=== PATIENT | female | born 1955 | race American Indian/Alaskan Native ===

== ENCOUNTER 2016-08-09 04:19 | Emergency (ER) | payer BC ==
[2016-08-09 04:46] LABS: Basophils % (Auto) 0.3 % (0.0-1.8); Eosinophils % (Auto) 1.5 % (0.0-4.3); Hematocrit 40.5 % (30.3-42.9); Hemoglobin 13.4 gm/dl (10.1-14.3); Mean Corpuscular HGB Conc 33 % (30-34); Mean Corpuscular Hemoglobin 31 pg (28-32); Mean Corpuscular Volume 95 fl (79-97); Platelet Count 223 K/mm3 (140-440); Red Blood Count 4.28 M/mm3 (3.65-5.03); White Blood Count 11.9 K/mm3 (4.5-11.0)
[2016-08-09 05:08] LABS: Alanine Aminotransferase 19 units/L (7-56); Albumin 4.3 g/dL (3.9-5); Albumin/Globulin Ratio 1.4 %; Alkaline Phosphatase 96 units/L (35-129); Anion Gap 21 mmol/L; BUN/Creatinine Ratio 26.66; Blood Urea Nitrogen 16 mg/dL (7-17); Calcium 9.6 mg/dL (8.4-10.2); Carbon Dioxide 21 mmol/L (22-30); Chloride 104.2 mmol/L (98-107); Glucose 97 mg/dL (65-100); Lipase 32 units/L (13-60); Potassium 3.9 mmol/L (3.6-5.0); Sodium 142 mmol/L (137-145); Total Protein 7.4 g/dL (6.3-8.2)
[2016-08-09 07:48] LABS: Bilirubin,Urine NEG (Negative); Blood,Urine NEG (Negative); Ketones,Urine NEG (Negative); Leukocyte Esterase,Urine NEG (Negative); Nitrite,Urine NEG (Negative); Protein,Urine <15 mg/dL mg/dL (Negative); Urobilinogen,Urine < 2.0 mg/dL (<2.0); WBC,Urine < 1.0 /HPF (0.0-6.0)
[2016-08-09] MEDS ORDERED: NACL ONE (10:38)
--- NOTE | 2016-08-09 10:44 | Emergency Department Report ---
HPI - General Chief Complaint: Abdominal Pain Time Seen by Provider: 08/09/16 09:50 - HPI HPI: This is a 61-year-old Afro-[place] female who presents the emergency department , driving himself in to be seen, with complaint of right lower quadrant abdominal/pelvic pain has been going on intermittently for the past 4 months. She last had it about 10 minutes prior to presentation. When it happens it is a dull ache and moderate amount of pain but she does not currently have any discomfort while talking to me. She denies any fever, nausea, vomiting, back pain, dysuria, vaginal bleeding or discharge. She is not taken anything for symptoms prior to presentation. Her primary care doctor is Dr. 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 No recent travel or sick contacts at home. She denies any past medical history. ED Past Medical Hx - Past Medical History Previous Medical History?: No - Surgical History Past Surgical History?: No - Social History Smoking Status: Former Smoker Substance Use Type: Alcohol ED Review of Systems ROS: Stated complaint: R SIDE ABD PAIN Other details as noted in HPI Comment: All other systems reviewed and negative Constitutional: denies: chills, fever Eyes: denies: eye pain, eye discharge, vision change ENT: denies: ear pain, throat pain Respiratory: denies: cough, shortness of breath, wheezing Cardiovascular: denies: chest pain, palpitations Gastrointestinal: abdominal pain. denies: nausea, vomiting Genitourinary: denies: urgency, dysuria, discharge Musculoskeletal: denies: back pain, joint swelling, arthralgia Skin: denies: rash, lesions Neurological: denies: headache, weakness, paresthesias Physical Exam - Physical Exam Vital Signs: Vital Signs 08/09/16 08/09/16 08/09/16 04:26 09:00 09:56 Temperature 98.3 F 97.6 F Pulse Rate 73 64 74 Respiratory 18 16 16 Rate Blood Pressure 136/88 126/80 Blood Pressure 124/78 [Left] O2 Sat by Pulse 100 98 100 Oximetry 08/09/16 10:04 Temperature Pulse Rate 77 Respiratory 16 Rate Blood Pressure Blood Pressure 124/71 [Left] O2 Sat by Pulse 100 Oximetry Physical Exam: GENERAL: The patient is well-developed well-nourished. HEENT: Normocephalic. Atraumatic. Extraocular motions are intact. Patient has moist mucous membranes. Pupils equal reactive to light bilaterally. NECK: Supple. Trachea is midline. CHEST/LUNGS: Clear to auscultation. There is no respiratory distress noted. HEART/CARDIOVASCULAR: Regular. There is no tachycardia. There is no gallop rub or murmur. ABDOMEN: Abdomen is soft, nontender. Patient has normal bowel sounds. There is no abdominal distention. No guarding or rebound tenderness. SKIN: Skin is warm and dry. NEURO: The patient is awake, alert, and oriented. The patient is cooperative. The patient has no focal neurologic deficits. The patient has normal speech. MUSCULOSKELETAL: There is no tenderness or deformity. There is no limitation range of motion. There is no evidence of acute injury. ED Course Vital Signs 08/09/16 08/09/16 08/09/16 04:26 09:00 09:56 Temperature 98.3 F 97.6 F Pulse Rate 73 64 74 Respiratory 18 16 16 Rate Blood Pressure 136/88 126/80 Blood Pressure 124/78 [Left] O2 Sat by Pulse 100 98 100 Oximetry 08/09/16 10:04 Temperature Pulse Rate 77 Respiratory 16 Rate Blood Pressure Blood Pressure 124/71 [Left] O2 Sat by Pulse 100 Oximetry ED Medical Decision Making - Lab Data Result diagrams: 08/09/16 04:35 08/09/16 04:35 - Radiology Data Radiology results: report reviewed CT of the abdomen and pelvis with IV contrast shows no acute CT abnormalities with various internal findings including hepatic hemangiomas, midline anterior abdominal wall multiple hernias and uterine fibroids. - Medical Decision Making 61-year-old female presents to the emergency department with intermittent right lower quadrant abdominal pain over the past 4 months. She had some just prior to presentation but during the ED course this far she has not had any return of this discomfort. Vital signs stable throughout ED course. Patient's labs are unremarkable including no leukocytosis, electrolyte abnormalities, renal insufficiency, glucose abnormalities. She has normal belly labs including bilirubin, lipase and LFT. Urinalysis does not show any urinary tract infection. A CT of the abdomen and pelvis with IV contrast was done that does not show any acute process. There are incidental findings of fibroids, hepatic hemangiomas and fat filled hernia as. Patient was given the results of the CT report and the lab results. She appears safe for discharge home at this time. She has a primary care doctor for follow-up. She has been encouraged to return to the emergency department with any worsening of her symptoms or any acute distress. - Differential Diagnosis appendicitis, fibroids, colitis, UTI Critical Care Time: No Critical care attestation.: If time is entered above; I have spent that time in minutes in the direct care of this critically ill patient, excluding procedure time. ED Disposition Clinical Impression: Hemangioma of liver Abdominal pain Qualifiers: Abdominal location: right lower quadrant Qualified Code(s): R10.31 - Right lower quadrant pain Fibroid Qualifiers: Uterine leiomyoma location: unspecified location Qualified Code(s): D25.9 - Leiomyoma of uterus, unspecified Disposition: DISCHARGED TO HOME OR SELFCARE Is pt being admited?: No Condition: Stable Instructions: Uterine Fibroids (ED), Abdominal Pain (ED) Additional Instructions: Please follow-up with Dr. Spencer in the next few days without fail. Return to the emergency department with any worsening of your symptoms or any acute distress. Referrals: PERI LUCAS JR, MD [Primary Care Provider] - 3-5 Days Time of Disposition: 11:55
--- NOTE | 2016-08-09 11:27 | Cat Scan Report ---
CT ABDOMEN AND PELVIS WITH CONTRAST INDICATION: RLQ abdominal pain. COMPARISON: None similar. FINDINGS: Abdomen and pelvis CT performed following intravenous administration of 100 cc of Omnipaque 300. LUNG BASES: Slight nonspecific distal esophageal prominence. ABDOMEN: Approximately 4.4 x 2.6 x 4.7 cm peripheral right hepatic lobe hemangioma. Approximately 1 cm another right hepatic lobe hemangioma may also be present on axial image 57, series 2, amongst others. Few small splenic calcified granulomas. Otherwise unremarkable liver, spleen, gallbladder, pancreas, adrenals, nonaneurysmal abdominal aorta with few atherosclerotic calcifications, IVC and non-hydronephrotic kidneys. No ascites or significant adenopathy. Nonopacified GI tract evaluation limited, though grossly nonobstructive. Normal appendix. Colonic stool, most along the ascending colon. Fat containing umbilical hernia with a transverse neck of 1.3 cm. At least 2 additional supraumbilical fat containing midline hernias noted with transverse neck of approximately 1.3 cm, axial image 155 and 0.8 cm, axial image 168 respectively. PELVIS: Myomatous uterus with small calcifications. Few pelvic phleboliths. Unremarkable urinary bladder. Mild rectal stool. Approximately 1.9 x 0.9 cm right external iliac lymph node, axial image 286, series 2. No free fluid. Approximately 2-3 mm anterolisthesis of L4 over L5 with advanced bilateral facet arthropathy. Mild L5-S1 facet arthropathy and hip degenerative changes as well. CONCLUSION: No acute CT abnormality with various incidental findings, including hepatic hemangiomas, midline anterior abdominal wall multiple hernias and uterine fibroids, amongst others, as described. Thank you for the opportunity to participate in this patient's care.
[2016-08-09 12:07] VITALS: BP 127/71
== END 2016-08-09 12:12 | disposition home or self-care (01) ==
LOC: ED 04:19
DX: D18.09 Hemangioma of other sites (principal); D18.03 Hemangioma of intra-abdominal structures; R10.31 Right lower quadrant pain; D25.9 Leiomyoma of uterus, unspecified; Z87.891 Personal history of nicotine dependence
CPT/HCPCS: 36415; 74177; 80053; 81001; 83690; 85025; 99284; Q9967